=== PATIENT | female | born 1975 | race Two or more races ===

== ENCOUNTER 2016-11-21 08:36 | Outpatient (CLI) | payer OTHER ==
--- NOTE | 2016-11-21 09:58 | Diagnostic Imaging Report ---
Abdominal ultrasound HISTORY: Pain The liver exhibits a homogeneous parenchyma. No focal lesions. The gallbladder appears normal. No calculi are seen. No biliary dilatation. There is incomplete visualization of the pancreas due to bowel gas. The kidneys appear normal bilaterally. No other retroperitoneal or intra-abdominal abnormalities. IMPRESSION: Negative examination
== END 2016-11-21 09:15 ==
LOC: RAD 08:36
PROVIDERS: ATTEND Specialist
DX: R10.9 Unspecified abdominal pain (principal)
CPT/HCPCS: 76700-TC